=== PATIENT | female | born 1940 | race Caucasian/White ===

== ENCOUNTER 2016-12-21 18:10 | Inpatient (IN) | payer OTHER ==
[~2016-12-21] VITALS: Ht 157.5 cm; Wt 46.0 kg
--- NOTE | ~2016-12-21 | EKG ---
[address] [address] ELECTROCARDIOGRAM REPORT Name: MARIANNE GREENBERG Room #: 453-P ADM IN M.R.#: [id number] Admission: 12/21/16 Attend Phys: Jo Ann Martell MD Discharge: Date of : 44 Report #: [id number] THIS REPORT FOR: //name// [facility] ED Test Date: 2016-12-21 Test Time: 18:16:20 Pat Name: MARIANNE GREENBERG Department: Room: [facility] Gender: F Wink Cutter Operator: VINCENZO : 1940 Requested By: Barrie Veliz Order Number: [id number] MD: Zane Alejo Measurements Intervals [place] Rate: 96 P: 64 AL: 149 QRS: -26 QRSD: 78 T: 55 QT: 332 QTc: 420 Interpretive Statements Sinus rhythm Abnormal R-wave progression, early transition Inferior infarct, old Compared to ECG 03/08/2014 23:02:15 Left-axis deviation no longer present ST (T wave) deviation no longer present Electronically Signed On 12-22-2016 7:21:43 CDT by Zane Alejo [email or web address] <ELECTRONICALLY SIGNED> By: Zane Alejo MD, [facility] 12/22/16 0721 181 15 Zane Alejo MD, [facility] /EPI
--- NOTE | ~2016-12-21 | H ---
[facility] [place] [address] HISTORY AND PHYSICAL Name: MARIANNE GREENBERG Room #: 453-P ADM IN M.R.#: [id number] Admission: 12/21/16 Attend Phys: Jo Ann Martell MD Discharge: Date of : 44 Report #: [id number] THIS REPORT FOR: //name// CC: Jo Ann Martell DATE OF SERVICE: 12/21/2016 CHIEF COMPLAINT: Abnormal labs. HISTORY OF PRESENT ILLNESS: The patient is a 76-year-old female who resides at [facility]. She reportedly was not acting her usual self and had non-injury fall earlier today. Stat labs were drawn and she was found to have a sodium of 118 and a potassium of 6.8. She was sent to [facility] emergency department for evaluation where she was confirmed to have abnormal labs. She was also found to have elevated BUN and creatinine and findings suggestive of urinary tract infection. She was admitted for further medical management. PAST MEDICAL HISTORY: Atrial fibrillation, CVA with right-sided deficits, multiple sclerosis, hypothyroidism, depression, chronic constipation, oropharyngeal dysphagia requiring a pureed diet, and vascular dementia. ALLERGIES: and ERYTHROMYCIN. MEDICATIONS: Remeron 7.5 mg at bedtime, Seroquel 50 mg at bedtime, Senna-S 2 tablets daily, lorazepam 0.5 mg every 4 hours as needed, levothyroxine 50 mcg daily, aspirin 81 mg daily, Celexa 20 mg daily, Depakote 200 mg b.i.d., Aricept 10 mg at bedtime and famotidine 20 mg at bedtime. FAMILY HISTORY: Noncontributory. SOCIAL HISTORY: The patient resides at the [facility]. She is . She does not use tobacco or alcohol. REVIEW OF SYSTEMS: GENERAL: The patient requires total care in all activities of daily living. HEENT: Negative. PULMONARY: Negative. CARDIAC: Negative. GASTROINTESTINAL: Incontinent of bowel. GENITOURINARY: Incontinent. MUSCULOSKELETAL: Bed to chair, requires assistance to transfer from bed. PHYSICAL EXAMINATION: GENERAL: The patient is a pleasant, cooperative female, lying in bed, in no apparent distress. [address] [address] HISTORY AND PHYSICAL Name: MARIANNE GREENBERG Room #: 453-P [facility] IN M.R.#: [id number] Admission: 12/21/16 Attend Phys: Jo Ann Martell MD Discharge: Date of : 44 Report #: [id number] VITAL SIGNS: Reveal temperature of 36.2, pulse of 86, respiratory rate of 14, and blood pressure 132/72. HEENT: Head is normocephalic, atraumatic. Pupils are equal and reactive. Extraocular muscles are intact. Oropharynx is dry with poor dentition. NECK: Supple. Trachea midline. LUNGS: Grossly clear to auscultation bilaterally. CARDIOVASCULAR: With irregular rhythm. ABDOMEN: Soft, tender to deep palpation with normoactive bowel sounds. SKIN: Warm and dry. Turgor is diminished. LYMPHATICS: No cervical or axillary lymphadenopathy. NEUROLOGIC: She is awake, alert, and oriented to self. She moves all extremities with noted right-sided weakness. Cranial nerves reveal a right nasolabial droop MUSCULOSKELETAL: Reveals right-sided deficits, relative to the left. LABORATORY DATA: CBC is unremarkable. Abnormals in the BMP including sodium 118, potassium 6.8, chloride 85, BUN 85, creatinine 2.5. Urinalysis shows blood 3+, leukocyte esterase 3+, rbc many, wbc many, bacteria many. ASSESSMENT: 1. Acute renal failure due to acute tubular necrosis. 2. Hyperkalemia. 3. Hyponatremia. 4. Urinary tract infection. 5. Volume depletion. 6. Debility. 7. Severe protein-calorie malnutrition as she is at below ideal body weight. 8. History of cerebrovascular accident with right-sided deficits. PLAN: Admission, continue IV fluids, continue Rocephin. Follow her labs. We will discontinue Paxil since it can cause hyponatremia. We will also discontinue Aricept since it can cause anorexia. Continue other home medications. We will start supplements 3 times a day. We will order SCDs for DVT prophylaxis. By: 1430 1615 Jo Ann Martell MD /nt
[~2016-12-21 18:10] MED LIST: ARICEPT 5 MG TAB5 MG PO; ASPIR 8181 M1 PO; ATIVAN0.5 M1 PO; BACTRIM DS TAB1 EACH PO; CELEXA20 MG PO; LEVOTHYROXINE0.05 MG PO; LORATIDINE 10 M10 M1 PO; NAMENDA 10 MG T10 MG PO; SENOKOT-S1 TA1 PO; SEROQUEL 50 MG50 M1 PO; TYLENOL325 MG PO; VITAMIN D-32000 UNIT PO
[2016-12-21 18:11] VITALS: BP 135/60
[2016-12-21 18:25] LABS: HEMATOCRIT 40.3 % (37.0-47.0); HEMOGLOBIN 13.8 gm/dL (12.0-15.0); MCH 28.6 pg (26.0-34.0); MCHC 34.3 g/dL (28.0-37.0); MCV 83.4 fL (80.0-100.0); PLATELET COUNT 642 thou/uL (150-400); RBC 4.83 mil/uL (4.20-5.00); RDW 14.5 % (10.5-14.5); WBC 9.3 thou/uL (4.0-11.0)
[2016-12-21 18:27] LABS: MANUAL DIFF YES
[2016-12-21 18:37] LABS: BUN 85 mg/dL (7-18); CALCIUM 9.3 mg/dL (8.5-10.1); CHLORIDE 85 mmol/L (98-107); CO2 21 mmol/L (21-32); CREATININE 2.5 mg/dL (0.6-1.0); GLUCOSE 113 mg/dL (74-106)
[2016-12-21 18:39] LABS: ANION GAP 12 mmol/L (7-16); SODIUM 118 mmol/L (136-145)
[2016-12-21 18:41] LABS: POTASSIUM 6.8 mmol/L (3.5-5.1)
[2016-12-21 18:47] LABS: TROPONIN-I < 0.04 ng/mL (<0.04-0.07)
[2016-12-21 19:03] LABS: ABSOLUTE NEUTROPHILS 6.6 thou/uL (1.4-8.2); TOTAL CELL COUNT 100
[2016-12-21 19:05] LABS: ANISOCYTOSIS 1+; POLYCHROMASIA OCCASIONAL
[2016-12-21 19:54] VITALS: BP 129/69
[2016-12-21 19:58] LABS: ALBUMIN 2.6 g/dL (3.4-5.0); DIRECT BILIRUBIN 0.1 mg/dL (<0.1-0.3); TOTAL BILIRUBIN 0.4 mg/dL (<0.1-1.0); TOTAL PROTEIN 9.2 g/dL (6.4-8.2)
[2016-12-21 20:25] VITALS: BP 129/69
[2016-12-21 20:57] VITALS: BP 135/56
[2016-12-21 22:00] VITALS: BP 135/56
[2016-12-21 23:19] LABS: CALCIUM 9.4 mg/dL (8.5-10.1); CREATININE 2.3 mg/dL (0.6-1.0); POTASSIUM 5.5 mmol/L (3.5-5.1)
[2016-12-22] VITALS (7 sets, daily range): BP systolic 113–137; BP diastolic 44–82
[2016-12-22 01:02] LABS: URINE BILIRUBIN NEGATIVE (Negative); URINE BLOOD 3+ (Negative); URINE COLOR YELLOW; URINE GLUCOSE-RANDOM* NEGATIVE (Negative); URINE KETONES NEGATIVE (Negative); URINE NITRITE NEGATIVE (Negative); URINE PROTEIN (DIPSTICK) 2+ (Negative); URINE SPECIFIC GRAVITY 1.015 (1.003-1.035); URINE UROBILINOGEN 0.2 E.U./dl (0.2-1.0)
[2016-12-22 01:08] LABS: BACTERIA >30 Many /HPF (None Seen); CASTS None Seen /LPF (None Seen); CRYSTALS None Seen /LPF (None Seen); SQUAMOUS 0-3 Few /LPF (0-3); URINE RBC >20 Many /HPF (0-2); URINE WBC >25 Many /HPF (0-5)
[2016-12-23 05:44] LABS: MCH 28.2 pg (26.0-34.0); MCHC 33.3 g/dL (28.0-37.0); MCV 84.6 fL (80.0-100.0); RBC 3.67 mil/uL (4.20-5.00); WBC 6.2 thou/uL (4.0-11.0)
[2016-12-23 05:45] LABS: HEMOGLOBIN 10.3 gm/dL (12.0-15.0)
[2016-12-23 05:51] LABS: CREATININE 1.4 mg/dL (0.6-1.0); POTASSIUM 4.7 mmol/L (3.5-5.1)
[2016-12-23 06:02] VITALS: BP 124/68
[2016-12-23 07:50] VITALS: BP 142/84
[2016-12-23 12:31] VITALS: BP 119/50
[2016-12-23 16:06] VITALS: BP 108/50
[2016-12-23 19:22] VITALS: BP 111/58
[2016-12-24 04:37] VITALS: BP 110/73
[2016-12-24 05:01] LABS: CALCIUM 7.7 mg/dL (8.5-10.1); POTASSIUM 4.4 mmol/L (3.5-5.1)
[2016-12-24 08:10] VITALS: BP 112/54
[2016-12-24 12:10] VITALS: BP 107/60
[2016-12-24 15:30] VITALS: BP 98/50
[2016-12-24 19:50] VITALS: BP 111/61
[2016-12-25 05:58] VITALS: BP 119/51
[2016-12-25 07:24] VITALS: BP 100/63
[2016-12-25 11:22] VITALS: BP 109/45
[2016-12-25] MEDS ORDERED: CEFUROXIME250 MG PO (14:07)
[2016-12-25] MEDS ORDERED: OMEPRAZOLE 20 M20 M1 PO (14:08)
== END 2016-12-25 18:02 | disposition hospice, home (50) | DRG 682 ==
LOC: ER 18:10 → EROBS 19:11 → 4W 19:11
PROVIDERS: Internal Medicine; Nurse Practitioner
PROC: 02HV33Z Insertion of Infusion Device into Superior Vena Cava, Percutaneous Approach (ICD-10-PCS; principal; 2016-12-22)
DX: N17.0 Acute kidney failure with tubular necrosis (principal); E43 Unspecified severe protein-calorie malnutrition; E87.1 Hypo-osmolality and hyponatremia; N39.0 Urinary tract infection, site not specified; Z68.1 Body mass index [BMI] 19.9 or less, adult; I69.351 Hemiplegia and hemiparesis following cerebral infarction affecting right dominant side; K21.9 Gastro-esophageal reflux disease without esophagitis; E03.9 Hypothyroidism, unspecified; E87.5 Hyperkalemia; I48.91 Unspecified atrial fibrillation; F32.9 Major depressive disorder, single episode, unspecified; K59.09 Other constipation; F01.50 Vascular dementia, unspecified severity, without behavioral disturbance, psychotic disturbance, mood disturbance, and anxiety; E86.9 Volume depletion, unspecified; B96.20 Unspecified Escherichia coli [E. coli] as the cause of diseases classified elsewhere; G35 Multiple sclerosis; N13.30 Unspecified hydronephrosis; I25.10 Atherosclerotic heart disease of native coronary artery without angina pectoris; Z79.899 Other long term (current) drug therapy; Z88.1 Allergy status to other antibiotic agents
CPT/HCPCS: 10045; 27000